=== PATIENT | female | born 2005 | race Caucasian/White ===

== ENCOUNTER 2023-01-31 01:39 | Emergency (ER) | payer OTHER ==
[~2023-01-31] VITALS: Ht 157.4 cm; Wt 52.2 kg
== END 2023-01-31 02:37 | disposition left against medical advice (07) ==
LOC: ED 01:39
DX: H93.8X1 Other specified disorders of right ear (principal); Z88.8 Allergy status to other drugs, medicaments and biological substances

== ENCOUNTER 2023-02-05 09:31 | Emergency (ER) | payer OTHER ==
[~2023-02-05] VITALS: Ht 160 cm; Wt 52.2 kg
== END 2023-02-05 11:18 | disposition home or self-care (01) ==
LOC: ED 09:31
DX: S93.401A Sprain of unspecified ligament of right ankle, initial encounter (principal); Z88.8 Allergy status to other drugs, medicaments and biological substances; W19.XXXA Unspecified fall, initial encounter; Y93.89 Activity, other specified; Y92.89 Other specified places as the place of occurrence of the external cause; Y99.8 Other external cause status